=== PATIENT | male | born 1970 | race Caucasian/White ===

== ENCOUNTER → 2017-12-20 | Outpatient (CLI) | payer OTHER | LOC: FIMAGING 08:02 | PROVIDERS: ATTEND Physician Assistant Medical | DX: Q76.49 Other congenital malformations of spine, not associated with scoliosis (principal); M48.02 Spinal stenosis, cervical region; M53.82 Other specified dorsopathies, cervical region; M50.31 Other cervical disc degeneration, high cervical region ==